=== PATIENT | male | born 1980 | race Caucasian/White ===

== ENCOUNTER → 2020-05-14 07:41 | Outpatient (CLI) | payer OTHER, SELFPAY ==
[2020-05-14 09:09] LABS: Alanine Aminotransferase 41 IU/L (<50); Albumin 4.4 g/dL (3.5-5.0); Albumin Globulin Ratio 1.5 (1.0-2.8); Alkaline Phosphatase 46 U/L (38-126); Aspartate Aminotransferase 45 IU/L (17-59); BUN Creatinine Ratio 22.5 (6-22); Bilirubin Total 0.5 mg/dL (0.2-1.3); Blood Urea Nitrogen 23 mg/dL (9-20); Calcium 9.3 mg/dL (8.4-10.2); Carbon Dioxide 28 mmol/L (22-32); Chloride 103 mmol/L (98-107); Cholesterol 181 mg/dL (140-199); Estimated Glomerular Filt Rate > 60.0 mL/min (>60); Globulin 2.9 g/dL (1.7-4.1); Glucose 103 mg/dL (70-100); HDL Cholesterol 52 mg/dL (40-60); HEMOLYSIS < 15 (0-50); LDL Cholesterol Calculated 117 mg/dL (<100); Potassium 4.4 mmol/L (3.4-5.1); Sodium 138 mmol/L (137-145); Total Protein 7.3 g/dL (6.3-8.2); Triglycerides 62 mg/dL (35-150)
[2020-05-14 09:36] LABS: TSH w/ Reflex to FT4 3.97 uIU/mL (0.47-4.68)
== END ==
PROVIDERS: PCP Family Medicine; Referring Provider Family Medicine; Visit Provider Family Medicine
DX: Z13.220 Encounter for screening for lipoid disorders (principal)
CPT/HCPCS: 36415; 80053; 80061; 84443

== ENCOUNTER 2020-11-06 14:17 | Emergency (ER) | payer OTHER, SELFPAY ==
[2020-11-06 14:29] VITALS: BP 137/88; PULSE 63; RESP 16; TEMP 36.7; O2SAT 97; BMI 23.7
--- NOTE | 2020-11-06 15:22 | PC.NURSE ---
L hand soaked in CHG bath for 10 min
--- NOTE | 2020-11-06 15:27 | ED.SKABFB ---
HPI - Skin/Abscess/Foreign Bdy General Chief complaint: Extremity Injury, Upper Stated complaint: cut palm from a drill Time Seen by Provider: 11/06/20 15:07 Source: patient Mode of arrival: Ambulatory Limitations: no limitations History of Present Illness HPI narrative: Patient is a 40-year-old male who presents november with a left hand injury. He was building a plantar box for his when he has took the drill bit to the palm of his hand. He denies numbness tingling or weakness. complaint: laceration Related Data Home Medications Medication Instructions Recorded Confirmed No Known Home Medications 04/15/20 04/15/20 Allergies Allergy/AdvReac Type Severity Reaction Status Date / Time amoxicillin [From TRIMOX] Allergy Unknown Verified 11/06/20 14:29 Review of Systems Review of Systems Narrative: GENERAL: Denies chills,fever HEENT: Denies throat pain RESPIRATORY: Denies dyspnea, cough, wheezing CARDIOVASCULAR: Denies chest pain, palpitations GASTROINTESTINAL: Denies nausea, vomiting MUSCULOSKELETAL: Denies extremity pain, injury SKIN: See HPI NEUROLOGIC: Denies weakness, dizziness, headache, numbness 8 point review of systems is negative except for those stated above and HPI Patient History Medical History Allergies (~2000) Chicken pox (~1984) Chronic back pain (~2015) GERD (gastroesophageal reflux disease) (~2011) GI bleeding (~2001) Hematospermia (~2011) Shoulder pain (~2004) Tinnitus (~2017) Surgical History History of removal of skin mole (~2015) History of vasectomy (~04/2018) Family History Grandfather History of heart disease Hyperlipidemia Hypertension Stroke Social History marital status: household members: spouse and children Smoking Status: Never smoker alcohol intake: current (ON OCCASION ) substance use type: does not use Smoking Status: Never smoker alcohol intake frequency: a few times a month Substance Use Type: does not use Exam Initial Vital Signs Initial Vital Signs: Vital Signs Temperature 98.1 F 11/06/20 14:29 Pulse Rate 63 11/06/20 14:29 Respiratory Rate 16 11/06/20 14:29 Blood Pressure 137/88 11/06/20 14:29 Pulse Oximetry 97 11/06/20 14:29 GENERAL: Well-appearing, well-nourished and in no acute distress. CARDIOVASCULAR: peripheral pulses in tact, cap refill <2 sec RESPIRATORY: No respiratory distress, speaks in full sentences without difficulty EXTREMITIES: Normal range of motion, no clubbing or edema. Neurovascularly intact NEUROLOGICAL: Cranial nerves II through XII grossly intact. Normal gait and speech. SKIN: Left hand palm laceration right at 3rd and 4th fingers Skin Hand Left Front: 1. Stellate laceration 3cm Procedures Laceration Repair Laceration 1: Site: hand Side (If applicable): left Size (cm): 3 Description: stellate Depth: simple, single layer Local Anesthetic: lidocaine 1% Amount of anesthesia used (mL): 3 Pre-repair: wound explored Skin layer closed with: nylon Size (cm): 4-0 Number of sutures: 2 Technique: simple, interrupted Course Orders Ordered: Discontinued Medications Diphtheria/Tetanus/Acell Pertussis (Tet,Diph,Pertuss(Acell),Vac/Pf 0.5 Ml Syringe) 0.5 ml IM .ONCE ONE Stop: 11/06/20 15:19 Lidocaine HCl (Lidocaine 1% (Pf)) 4 ml SUBCUT NOW ONE Stop: 11/06/20 15:19 Vital Signs Vital signs: Vital Signs - 8 hr 11/06/20 14:29 Temperature 98.1 F Pulse Rate 63 Respiratory Rate 16 Blood Pressure 137/88 Pulse Oximetry 97 Discharge Plan Departure Patient Disposition: Home Clinical Impression: Laceration of hand, left Qualifiers: Encounter type: initial encounter Foreign body presence: without foreign body Qualified Code(s): S61.412A - Laceration without foreign body of left hand, initial encounter Activity Restrictions/Additional Instructions: 1. Have your suture removed in 5-7 days, you may go to walk-in clinic, return to the ER or call your primary care physician. 2. No soaking in water including dishes, bathtubs, Lakes, swimming pools etc CC dressing on during the day, but let it air out at night. Apply Neosporin 1 to 2 times a day 3. Signs of infection include, but not limited to, increased redness, increased swelling, increased pain, fever and purulent drainage, if the symptoms should arise, you may need an antibiotic and you should have a reevaluation either by your primary care provider or by the emergency department. Prescriptions: No Action No Known Home Medications RF: 0 Referrals: Rob Jason MD [Primary Care Provider] -
[2020-11-06] MEDS: TET,DIPH,PERTUSS(ACELL),VAC/PF 0.5 ML SYRINGE IM (15:29)
[2020-11-06] MEDS: LIDOCAINE 1% (PF) 4 ML SUBCUT (15:30)
== END 2020-11-06 16:03 | disposition home or self-care (01) ==
PROVIDERS: Emergency Provider Emergency Medicine; PCP Family Medicine
DX: S61.412A Laceration without foreign body of left hand, initial encounter (principal); W26.8XXA Contact with other sharp object(s), not elsewhere classified, initial encounter; Z23 Encounter for immunization
CPT/HCPCS: 12002; 90471; 99283; 90715

== ENCOUNTER → 2022-07-21 15:51 | Outpatient (CLI) | payer OTHER, SELFPAY ==
[2022-07-21 17:12] LABS: Influenza A - CEPHEID Flu A POSITIVE (NEGATIVE); Influenza B - CEPHEID Flu B NEGATIVE (NEGATIVE); Respiratory Syncytial Virus Negative (Negative)
[2022-07-21 17:26] LABS: COVID-19 CEPHEID 4-PLEX PCR Negative (Negative)
== END ==
PROVIDERS: PCP Family Medicine; Visit Provider Student in an Organized Health Care Education/Training Program
DX: J06.9 Acute upper respiratory infection, unspecified (principal)
CPT/HCPCS: 0241U

== ENCOUNTER → 2022-12-15 08:56 | Outpatient (CLI) | payer OTHER, SELFPAY ==
[2022-12-15 10:13] LABS: Add Manual Diff / Slide Review NO; Basophils Absolute Auto 0 /uL (0-100); Basophils Percent Auto 0.5 % (0-2); Eosinophils Absolute Auto 200 /uL (0-450); Eosinophils Percent Auto 3.8 % (2-4); Hematocrit 43.6 % (41-53); Lymphocytes Absolute Auto 2000 /uL (1100-4500); Lymphocytes Percent Auto 32.3 % (25-40); Mean Corpuscular HGB Conc 34.5 % (30-36); Mean Corpuscular Hemoglobin 29.9 PG (26-34); Mean Corpuscular Volume 86.8 fL (80-100); Monocytes Absolute Auto 600 /uL (0-900); Neutrophils Absolute Auto 3300 /uL (1500-7000); Neutrophils Percent Auto 54.4 % (50-75); Platelet Count 259 X10^3/uL (150-400); Red Blood Cell Count 5.03 X10^6/uL (4.5-5.9); Red Cell Distribution Width 12.9 % (11.6-14.8); White Blood Cell Count 6.2 X10^3/uL (4.5-11.0)
[2022-12-15 10:39] LABS: Alanine Aminotransferase 35 IU/L (<50); Albumin 4.6 g/dL (3.5-5.0); Albumin Globulin Ratio 1.5 (1.0-2.8); Alkaline Phosphatase 50 U/L (38-126); Aspartate Aminotransferase 30 IU/L (17-59); Bilirubin Total 0.7 mg/dL (0.2-1.3); Blood Urea Nitrogen 20 mg/dL (9-20); Calcium 9.2 mg/dL (8.4-10.2); Carbon Dioxide 30 mmol/L (22-32); Chloride 100 mmol/L (98-107); Cholesterol 202 mg/dL (140-199); Estimated Glomerular Filt Rate > 60 mL/min (>60); Glucose 102 mg/dL (70-100); HDL Cholesterol 44 mg/dL (40-60); HEMOLYSIS < 15 (0-50); LDL Cholesterol Calculated 133 mg/dL (<100); Potassium 4.6 mmol/L (3.4-5.1); Sodium 138 mmol/L (137-145); Total Protein 7.6 g/dL (6.3-8.2); Triglycerides 127 mg/dL (35-150)
== END ==
PROVIDERS: PCP Family Medicine; Referring Provider Family Medicine; Visit Provider Family Medicine
DX: Z13.220 Encounter for screening for lipoid disorders (principal)
CPT/HCPCS: 36415; 80053; 80061; 84443; 85025

== ENCOUNTER → 2023-12-18 11:48 | Outpatient (CLI) | payer OTHER, SELFPAY ==
--- NOTE | 2023-12-18 11:49 | DI.RAD.S_ITS ---
PROCEDURE: XR CHEST 2V INDICATIONS: Chronic cough x 2 months; chest pain TECHNIQUE: 2 views of the chest were acquired. COMPARISON: None. FINDINGS: Surgical changes and devices: None. Lungs and pleura: Lungs are clear. No pleural effusions or pneumothorax. Mediastinum: Mediastinal contours are normal. Heart size is normal. Bones and chest wall: No suspicious bony abnormalities. Soft tissues appear unremarkable. IMPRESSION: No acute cardiopulmonary abnormality is seen. Dictated by: Freddie Uribe M.D. on 12/18/2023 at 13:51 Approved by: Freddie Uribe M.D. on 12/18/2023 at 13:58
== END ==
PROVIDERS: PCP Family Medicine; Referring Provider Physician Assistant; Visit Provider Physician Assistant
DX: R07.9 Chest pain, unspecified (principal); R05.3 Chronic cough
CPT/HCPCS: 71046

== ENCOUNTER → 2023-12-19 10:04 | Outpatient (CLI) | payer OTHER, SELFPAY ==
[2023-12-19 12:31] LABS: Add Manual Diff / Slide Review NO; Basophils Absolute Auto 0 /uL (0-100); Basophils Percent Auto 0.7 % (0-2); Eosinophils Absolute Auto 100 /uL (0-450); Eosinophils Percent Auto 2.3 % (2-4); Hemoglobin 14.3 g/dL (13.5-17.5); Lymphocytes Absolute Auto 2000 /uL (1100-4500); Lymphocytes Percent Auto 33.1 % (25-40); Mean Corpuscular HGB Conc 34.2 % (30-36); Mean Corpuscular Hemoglobin 29.6 PG (26-34); Mean Corpuscular Volume 86.6 fL (80-100); Monocytes Absolute Auto 500 /uL (0-900); Monocytes Percent Auto 8.8 % (3-14); Neutrophils Absolute Auto 3300 /uL (1500-7000); Neutrophils Percent Auto 55.1 % (50-75); Platelet Count 274 X10^3/uL (150-400); Red Blood Cell Count 4.85 X10^6/uL (4.5-5.9); Red Cell Distribution Width 13.7 % (11.6-14.8)
[2023-12-19 12:53] LABS: Alanine Aminotransferase 31 IU/L (<50); Albumin 4.6 g/dL (3.5-5.0); Albumin Globulin Ratio 1.6 (1.0-2.8); Alkaline Phosphatase 54 U/L (38-126); Aspartate Aminotransferase 30 IU/L (17-59); BUN Creatinine Ratio 19.6 (6-22); Bilirubin Total 0.7 mg/dL (0.2-1.3); Blood Urea Nitrogen 22 mg/dL (9-20); Calcium 9.2 mg/dL (8.4-10.2); Carbon Dioxide 29 mmol/L (22-32); Chloride 103 mmol/L (98-107); Cholesterol 209 mg/dL (140-199); Estimated Glomerular Filt Rate > 60 mL/min (>60); Globulin 2.9 g/dL (1.7-4.1); Glucose 96 mg/dL (70-100); HDL Cholesterol 47 mg/dL (40-60); HEMOLYSIS < 15 (0-50); LDL Cholesterol Calculated 140 mg/dL (<100); Potassium 4.1 mmol/L (3.4-5.1); Sodium 139 mmol/L (137-145); Total Protein 7.5 g/dL (6.3-8.2); Triglycerides 111 mg/dL (35-150)
[2023-12-19 13:18] LABS: TSH w/ Reflex to FT4 3.07 uIU/mL (0.47-4.68)
== END ==
PROVIDERS: PCP Family Medicine; Referring Provider Physician Assistant; Visit Provider Physician Assistant
DX: Z13.220 Encounter for screening for lipoid disorders (principal); Z13.6 Encounter for screening for cardiovascular disorders; R07.9 Chest pain, unspecified
CPT/HCPCS: 36415; 80053; 80061; 84443; 85025

== ENCOUNTER → 2023-12-24 | Outpatient (CLI) | payer OTHER, SELFPAY ==
--- NOTE | 2023-12-25 20:27 | DI.NM.S_ITS ---
DATE OF SERVICE: 12/25/2023 PROCEDURE: Exercise stress test INDICATIONS: Chest pain. CARDIAC STRESS: The patient underwent exercise stress test under the supervision of an attending staff. The patient walked on Efrain protocol for 17 minutes and 06 seconds, achieved maximum heart rate of 179, which was 100% of target heart rate. Resting blood pressure 120/70 and peak blood pressure 190/90 mmHg. JAYDEN -38%. Achieved 17 METS of workload. Resting EKG revealed sinus rhythm. During stress, no convincing ischemic changes. No significant arrhythmias. No chest pain or anginal symptoms. RAW DATA: Exercise stress test is negative for inducible ischemia. Excellent exercise tolerance. JAYDEN -38%. Achieved 16.9 METS of workload. Normal hemodynamic response. No ischemic electrocardiographic changes. No significant arrhythmias. No chest pain. Overall, low-risk exercise stress test. Richi Meier - KENDRA/rama/KATERYNA doc#: [id number]/job#: [id number] dd: 12/25/2023 16:50:00 dt: 12/25/2023 20:12:00 DICTATING /COPIES TO: Deandre Gilliland MD COPIES MNE: STUART;
== END ==
PROVIDERS: PCP Family Medicine; Referring Provider Physician Assistant; Visit Provider Physician Assistant
DX: R07.9 Chest pain, unspecified (principal)
CPT/HCPCS: 93017

== ENCOUNTER → 2024-10-09 07:55 | Outpatient (CLI) | payer OTHER, SELFPAY ==
[2024-10-10 03:39] LABS: CRP, High Sensitivity 0.36 mg/L (0.00-3.00)
[2024-10-10 04:11] LABS: Apolipoprotein B 102 mg/dL (<90)
[2024-10-12 19:38] LABS: Lipoprotein (a) 26.9 nmol/L (<75.0)
== END ==
PROVIDERS: PCP Family Medicine; Referring Provider Family Medicine; Visit Provider Family Medicine
DX: E78.5 Hyperlipidemia, unspecified (principal)
CPT/HCPCS: 36415; 82172; 83695; 86140

== ENCOUNTER 2024-12-06 10:57 | Emergency (ER) | payer OTHER, SELFPAY ==
[2024-12-06 11:02] VITALS: BP 132/75; PULSE 60; RESP 18; TEMP 36.1; O2SAT 97; BMI 27.1
--- NOTE | 2024-12-06 11:24 | ED_ITS ---
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 His dates his tetanus is up-to-date. He was able to control the bleeding with direct pressure and paper towels at home. He is really not washed it out. He states it was not especially painful if he is not touching it. He does feel like his movement is okay and he denies any numbness or tingling in that finger he and his note that they feel they could see bone under the flap. Denies any other injuries sustained. Related Data Previous Rx's Medication Instructions Recorded rosuvastatin 10 mg tablet (Crestor) 10 mg PO DAILY #90 tabs 10/13/24 doxycycline hyclate 100 mg capsule 100 mg PO BID Infection 12/06/24 prophylaxis, deep wound 7 days #14 caps Allergies Allergy/AdvReac Type Severity Reaction Status Date / Time amoxicillin [From TRIMOX] AdvReac Unknown Hives Verified 12/06/24 11:02 Review of Systems <Vicki Wilks PA-C - Last Filed: 12/06/24 14:10> Review of Systems Narrative: See HPI Patient History <Vicki Wilks PA-C - Last Filed: 12/06/24 14:10> Medical History Allergies (~2000) Shoulder pain (~2004) Chronic back pain (~2015) Chicken pox (~1984) Tinnitus (~2017) Hematospermia (~2011) GI bleeding (~2001) GERD (gastroesophageal reflux disease) (~2011) Surgical History History of vasectomy (~04/2018) History of removal of skin mole (~2015) Family History Grandfather History of heart disease Hyperlipidemia Hypertension Stroke Social History marital status: household members: spouse and children Smoking Status: Never smoker alcohol intake: current (ON OCCASION ) substance use type: does not use Smoking Status: Never smoker alcohol intake frequency: a few times a month Exam <Vicki Wilks PA-C - Last Filed: 12/06/24 14:10> Narrative Exam Narrative: GENERAL: [44] year old patient appears stated age. Well-developed patient, in mild distress. HEAD: Atraumatic. Normocephalic. EYES: Pupils equal round and reactive. Extraocular motions intact. No scleral icterus. No injection or drainage. ENT: Nose without bleeding, purulent drainage. Airway patent. NECK: Trachea midline. CARDIOVASCULAR: Regular rate and rhythm without murmurs, gallops, or rubs. RESPIRATORY: No increased work of breathing or respiratory distress EXTREMITIES: On the affected right 5th digit on the dorsal aspect of the proximal phalanx there is a laceration/avulsion with 2 attached skin segments 1 mid proximal and 1 laterally on the flap. 3cm in length running proximal to distal 1.2 cm flap width. The flap tissue appears generally well perfused and is similar in skin tone to the remainder of the finger. Strength is intact with flexion and extension; ROM intact. Sensation is intact. No edema or joint tenderness. NEURO: AOx3. SKIN: No rash or erythema of visible areas Initial Vital Signs Initial Vital Signs: Vital Signs Temperature 97.0 F L 12/06/24 11:02 Pulse Rate 60 12/06/24 11:02 Respiratory Rate 18 12/06/24 11:02 Blood Pressure 132/75 12/06/24 11:02 Pulse Oximetry 97 12/06/24 11:02 Oxygen Delivery Method Room Air 12/06/24 11:02 <Brie Rojas DO - Last Filed: 12/06/24 16:01> Initial Vital Signs Initial Vital Signs: Vital Signs Temperature 97.0 F L 12/06/24 11:02 Pulse Rate 60 12/06/24 11:02 Respiratory Rate 18 12/06/24 11:02 Blood Pressure 132/75 12/06/24 11:02 Pulse Oximetry 97 12/06/24 11:02 Oxygen Delivery Method Room Air 12/06/24 11:02 Procedures <Vicki Wilks PA-C - Last Filed: 12/06/24 14:10> Laceration Repair Laceration 1: Time of procedure: 13:10 Site: upper extremity (5th digit R hand) Side (If applicable): right Size (cm): 3 Description: flap (flap avulsion dorsum 3cmx1.2cm w/2 attached points perfusing tissue) Depth: simple, single layer Local Anesthetic: lidocaine 1% Amount of anesthesia used (mL): 5 Pre-repair: wound explored, irrigated extensively (1000mL sterile water), deep structures intact (extensor tendon sheath visible-intact) and cleansed with chlorhexadine Skin layer closed with: nylon Skin layer suture size: 5-0 Number of sutures: 11 Technique: simple, interrupted Course <Vicki Wilks PA-C - Last Filed: 12/06/24 14:10> Orders Ordered: ED Orders 12/06/24 11:52 XR finger RT min 2V Stat Discontinued Medications Acetaminophen (Acetaminophen 325 Mg Tablet) 975 mg PO NOW ONE Stop: 12/06/24 11:55 Last Admin: 12/06/24 12:02 Dose: 975 mg Documented By: Diphtheria/Tetanus/Acell Pertussis (Tet,Diph,Pertuss(Acell),Vac/Pf 0.5 Ml Syringe) 0.5 ml IM .ONCE ONE Stop: 12/06/24 13:35 Last Admin: 12/06/24 13:38 Dose: 0.5 ml Documented By: Ibuprofen (Ibuprofen 400 Mg Tablet) 400 mg PO NOW ONE Stop: 12/06/24 11:55 Last Admin: 12/06/24 12:05 Dose: 400 mg Documented By: Lidocaine HCl (Lidocaine 2% Inj Mdv 20ml) 10 ml INJ INTRA-OP ONE Stop: 12/06/24 11:54 Last Admin: 12/06/24 13:14 Dose: Not Given Documented By: Lidocaine HCl (Lidocaine 1% 20 Ml) 10 ml SUBCUT NOW ONE Stop: 12/06/24 12:16 Vital Signs Vital signs: Vital Signs - 8 hr 12/06/24 11:02 12/06/24 14:08 Temperature 97.0 F L 98.6 F Pulse Rate 60 68 Respiratory Rate 18 19 Blood Pressure 132/75 135/78 Pulse Oximetry 97 98 Oxygen Delivery Method Room Air Room Air <Brie Rojas DO - Last Filed: 12/06/24 16:01> Orders Ordered: ED Orders 12/06/24 11:52 XR finger RT min 2V Stat Discontinued Medications Acetaminophen (Acetaminophen 325 Mg Tablet) 975 mg PO NOW ONE Stop: 12/06/24 11:55 Last Admin: 12/06/24 12:02 Dose: 975 mg Documented By: Diphtheria/Tetanus/Acell Pertussis (Tet,Diph,Pertuss(Acell),Vac/Pf 0.5 Ml Syringe) 0.5 ml IM .ONCE ONE Stop: 12/06/24 13:35 Last Admin: 12/06/24 13:38 Dose: 0.5 ml Documented By: Ibuprofen (Ibuprofen 400 Mg Tablet) 400 mg PO NOW ONE Stop: 12/06/24 11:55 Last Admin: 12/06/24 12:05 Dose: 400 mg Documented By: Lidocaine HCl (Lidocaine 2% Inj Mdv 20ml) 10 ml INJ INTRA-OP ONE Stop: 12/06/24 11:54 Last Admin: 12/06/24 13:14 Dose: Not Given Documented By: Lidocaine HCl (Lidocaine 1% 20 Ml) 10 ml SUBCUT NOW ONE Stop: 12/06/24 12:16 Vital Signs Vital signs: Vital Signs - 8 hr 12/06/24 11:02 12/06/24 14:08 Temperature 97.0 F L 98.6 F Pulse Rate 60 68 Respiratory Rate 18 19 Blood Pressure 132/75 135/78 Pulse Oximetry 97 98 Oxygen Delivery Method Room Air Room Air MDM - Wound/Laceration <Vicki Wilks PA-C - Last Filed: 12/06/24 14:10> Differential Diagnosis Differential diagnosis: Likely laceration (deep partial flap avulsion) Medical Records Attestation: I reviewed the patient's medical records. Imaging Data Extremity x-ray #1: My Impression: Agree with Radiology interpretation Radiologist's Impression: [address] [address] XRay Report Signed Patient: Richi Meier MR#: [id number] : 1980 Acct:[id number] Age/Sex: 44 / M Date of Service: 12/06/24 Loc: ED Accession Number: [id number] Procedure: XR finger RT min 2V Ordering Provider: Vicki Wilks PA-C PROCEDURE: XR FINGER RT MIN 2V INDICATIONS: deep to bone flap avulsion dorsum prox r 5th TECHNIQUE: AP hand, 2 views of the 5th finger(s) acquired. COMPARISON: None. FINDINGS: Bones: No fractures or dislocations. No suspicious bony lesions. Soft tissues: Soft tissue injury can be seen involving the proximal aspect of the 5th finger. No radiopaque foreign bodies are seen. IMPRESSION: Soft tissue injury of the proximal 5th finger, without an associated bony abnormality seen. Dictated by: Johnny Pollock M.D. on 12/06/2024 at 11:14 Approved by: Johnny Pollock M.D. on 12/06/2024 at 11:15 [facility] Narrative Medical decision making narrative: This is a generally healthy 44-year-old male presenting with concern for laceration/flap avulsion to the dorsum of his right 5th digit. Sustained approximately an hour prior to arrival from a lawnmower blade that he was replacing. Patient's ROM and strength are intact however it was a deep flap with the tendon sheath visible. There is no damage to the tendon sheath on exam after numbing with washout. Patient was provided with doxycycline as antibi otic prophylaxis. He has an allergy to penicillins. Wound was irrigated copiously and cleansed with chlorhexidine prior to repair. Lidocaine 1% was used rather than lidocaine with epinephrine to reduce vascular compromise of the flap which was sutured in place. Uncertain there will be enough blood supply to perfused the flap effectively however both myself and attending physician Dr. Rojas feel appropriate to try given that the tissue did seem well perfused even an hour and a half after the injury. There are 2 attached portions of skin intact and providing some perfusion to the flap. Patient was advised to elevate the hand, take Tylenol and ibuprofen as needed for pain. Suture removal in 8- 10 days with PCP or this ER or urgent care. Seek re-evaluation if concern that flap tissue is dying off or any concern for infection. Tdap updated today during ER visit. Return precautions provided, follow-up plan discussed, all questions answered. Discharge Plan Departure Patient Disposition: Home Clinical Impression: Avulsion of skin of finger Qualifiers: Encounter type: initial encounter Qualified Code(s): S61.209A - Unspecified open wound of unspecified finger without damage to nail, initial encounter Laceration of right little finger Qualifiers: Encounter type: initial encounter Damage to nail status: without damage Foreign body presence: without foreign body Qualified Code(s): S61.216A - Laceration without foreign body of right little finger without damage to nail, initial encounter Instructions: How to Care for a Laceration After Repair Activity Restrictions/Additional Instructions: *You have been diagnosed with [laceration/partial avulsion of skin of Right 5th digit] *What to do: *Please continue to take your regular medications as directed. [1 ] New medication prescriptions sent to your pharmacy: [Doxycycline] [ ] New medication written as a paper prescription [ ] No new medications given *Please follow up with your primary care provider in 2-3 days, call for an appointment. Let them know you were seen in the Emergency Department and that we ask that you be seen in follow up. We will electronically transmit a record of today's note if your PCP is in our system. We x-rayed her finger and thankfully there is no evidence of bony damage. Your flap/wound was fairly deep but the tendon sheath that sits above the bone does appear to be intact without damage. Because you had a flap with somewhat poor blood supply there is a risk that that flap of tissue that we repaired in place may not be viable ultimately. However it should provide some protection for your finger as it heals. Monitor for skin color change or drying out of the edges of this flap that could indicate it was not viable any longer. Also monitor for signs of infection such as redness, thick yellow-green drainage, increased swelling or pain around the wound. I did place you on antibiotics for 7 days as prophylaxis against infection, also we updated your tetanus today during your ER visit. You can follow up with your primary care provider or be seen in urgent care or this ER to have your sutures removed. Earliest would be 7 days although I recommend 8-10 days as I want to make sure this is adhering well before the sutures are removed. Try to wear the finger splint provided the majority of the time you can certainly take it off for showering or some activities but avoid bending her feel finger a great deal or doing a lot of work without finger for at least the 1st 5 days after repair. You should do some range of motion and flexion multiple times a day, but try not to over stretch the flap/or repair site. Can see the attached instructions regarding care of your laceration/repair. Keep your hand elevated for the next 12-24 hours to help with pain. I recommend Tylenol and ibuprofen around the clock for the next 24-48 hours for pain as well. Hope you feel better soon. *If you do not have a primary care provider please contact the [facility] Resource line at [phone]. They will ask some questions about your medical history and help get you set up with a doctor in the community. *Return to Emergency Department if you should have any new, worsening or concerning symptoms, such as [fever greater than 101 F, shaking chills, worsening pain, persistent vomiting or other bothersome symptoms] Prescriptions: New doxycycline hyclate 100 mg capsule 100 mg PO BID 7 Days Qty: 14 0RF No Action rosuvastatin [Crestor] 10 mg tablet 10 mg PO DAILY Qty: 90 0RF Referrals: Rob Jason MD [Primary Care Provider] - Stand Alone Forms: Patient Portal/API/Survey ED Sign-out <Brie Rojas DO - Last Filed: 12/06/24 16:01> Cosign ED Attending Juanature Attestation: I was immediately available in the department for consultation. Agree with exam above, patient was also seen by myself. Does not appear to be some tendon exposed but appears to be intact. Normal range of motion, neurovascularly intact. Patient to have low threshold for follow up but will start on oral antibiotics. Also discussed minimal tissue still connecting the flap but it appeared distal be vials so was closed with hope that the flap we will maintain viability and heal, patient aware of possibility that may need more specialized follow up if it does not.
--- NOTE | 2024-12-06 11:52 | DI.RAD.S_ITS ---
PROCEDURE: XR FINGER RT MIN 2V INDICATIONS: deep to bone flap avulsion dorsum prox r 5th TECHNIQUE: AP hand, 2 views of the 5th finger(s) acquired. COMPARISON: None. FINDINGS: Bones: No fractures or dislocations. No suspicious bony lesions. Soft tissues: Soft tissue injury can be seen involving the proximal aspect of the 5th finger. No radiopaque foreign bodies are seen. IMPRESSION: Soft tissue injury of the proximal 5th finger, without an associated bony abnormality seen. Dictated by: Johnny Pollock M.D. on 12/06/2024 at 11:14 Approved by: Johnny Pollock M.D. on 12/06/2024 at 11:15
[2024-12-06] MEDS: ACETAMINOPHEN 325 MG TABLET 975 MG PO (12:02)
[2024-12-06] MEDS: IBUPROFEN 400 MG TABLET PO (12:05)
[2024-12-06] MEDS: TET,DIPH,PERTUSS(ACELL),VAC/PF 0.5 ML SYRINGE IM (13:38)
[2024-12-06 14:08] VITALS: BP 135/78; PULSE 68; RESP 19; TEMP 37; O2SAT 98
== END 2024-12-06 14:09 | disposition home or self-care (01) ==
PROVIDERS: Emergency Provider Student in an Organized Health Care Education/Training Program; PCP Family Medicine
DX: S61.216A Laceration without foreign body of right little finger without damage to nail, initial encounter (principal); W45.8XXA Other foreign body or object entering through skin, initial encounter; Z23 Encounter for immunization
CPT/HCPCS: 12002; 29130; 73140; 90471; 99283; 90715

== ENCOUNTER → 2025-01-30 10:40 | Outpatient (CLI) | payer OTHER, SELFPAY ==
[2025-01-30 11:51] LABS: Cholesterol 183 mg/dL (140-199); HDL Cholesterol 57 mg/dL (40-60); Triglycerides 135 mg/dL (35-150)
[2025-02-02 15:09] LABS: Interpretation Negative (Negative)
== END ==
LOC: LAB 10:41
PROVIDERS: PCP Family Medicine; Referring Provider Family Medicine; Visit Provider Family Medicine
DX: E78.5 Hyperlipidemia, unspecified (principal); K29.00 Acute gastritis without bleeding
CPT/HCPCS: 36415; 80061; 83013